=== PATIENT | female | born 1945 | race Caucasian/White ===

== ENCOUNTER 2020-11-13 11:13 | Emergency (ER) | payer MEDICARE, OTHER ==
[2020-11-13 13:41] LABS: BASOPHIL 0.5 % (0-2); EOSINOPHIL 3.2 % (0-7); HCT 48.9 % (37.0-47.0); HGB 16.1 g/dl (12.5-16.0); LYMPHOCYTE 19.9 % (15-48); MCHC 32.9 g/dL (32.0-36.0); MCV 94.2 fL (78.0-100.0); MONOCYTE 8.5 % (0-12); MPV 11.3 fL (6.0-9.5); NEUTROPHIL 67.7 % (41-80); NRBC 0; PLT 182 K/uL (150-400); RBC 5.19 M/uL (4.20-5.40); RDW 13.6 % (11.5-14.0)
[2020-11-13 13:49] LABS: ALBUMIN 3.7 g/dL (3.4-5.0); BILIRUBIN - TOTAL 0.5 mg/dL (0.2-1.0); BUN/CREAT RATIO (CALC) 22.9 RATIO; CREATININE 0.83 mg/dL (0.51-0.95); GLOBULIN (CALCULATION) 3.4 g/dL; POTASSIUM 4.3 mmol/L (3.5-5.1); TOTAL PROTEIN 7.1 g/dL (6.4-8.2)
[2020-11-13 13:55] LABS: PRO-BNP 83 pg/mL (<450)
[2020-11-13] MEDS ORDERED: PREDNISONE 20MG20 MG PO (16:00)
== END 2020-11-13 16:26 | disposition home or self-care (01) ==
LOC: FER 11:13
PROVIDERS: Emergency Medicine
DX: J43.9 Emphysema, unspecified (principal); U07.1 COVID-19; I10 Essential (primary) hypertension; Z88.0 Allergy status to penicillin; Z88.1 Allergy status to other antibiotic agents
CPT/HCPCS: 36415; 36600; 71046; 71275; 80053; 82803; 83880; 84484; 85025; 85379; Q9967

== ENCOUNTER → 2020-12-25 | Day surgery (SDC) | payer MEDICARE, OTHER ==
[~2020-12-25] VITALS: Ht 165.1 cm; Wt 91.2 kg
[~2020-12-25] MED LIST: LEXAPRO 10MG TA10 MG PO; MIRALAX17 GM PO; MUCINEX 600MG600 MG PO; NORVASC5 MG PO; OXYGEN; PREDNISONE 20MG20 MG PO; TRELEGY ELLIPT1 EACH INH; VITAMIN D325 MC4 PO; ZYRTEC10 M3 PO; [UNRECOGNIZED DRUG - MIXTURE] PO
== END | disposition home or self-care (01) ==
LOC: FAS 08:52
DX: D12.8 Benign neoplasm of rectum (principal); K57.30 Diverticulosis of large intestine without perforation or abscess without bleeding; K59.09 Other constipation; I10 Essential (primary) hypertension; J44.9 Chronic obstructive pulmonary disease, unspecified; G47.30 Sleep apnea, unspecified; F41.9 Anxiety disorder, unspecified; Z99.81 Dependence on supplemental oxygen; Z87.891 Personal history of nicotine dependence; Z88.0 Allergy status to penicillin; Z88.1 Allergy status to other antibiotic agents; Z88.8 Allergy status to other drugs, medicaments and biological substances; Z79.899 Other long term (current) drug therapy
CPT/HCPCS: J7120